=== PATIENT | female | born 1980 | race Two or more races ===

== ENCOUNTER 2020-05-12 19:58 | Emergency (ER) | payer MEDICAID ==
[~2020-05-12] VITALS: Ht 165.1 cm; Wt 68.0 kg
[2020-05-12 20:34] VITALS: BP 114/56
[2020-05-12] MEDS ORDERED: TETANUS-DIPTH-ACEL PERTUSSIS 0.5ML SYR Tdap IM ONE (22:00)
== END 2020-05-12 22:25 | disposition home or self-care (01) ==
LOC: ER 19:59
DX: S91.311A Laceration without foreign body, right foot, initial encounter (principal); W26.8XXA Contact with other sharp object(s), not elsewhere classified, initial encounter; Y93.89 Activity, other specified; Y92.89 Other specified places as the place of occurrence of the external cause; Y99.8 Other external cause status
CPT/HCPCS: 12001; 73630; 90471; 90715